=== PATIENT | male | born 1955 | race Caucasian/White ===

== ENCOUNTER → 2021-11-24 | Outpatient (CLI) | payer OTHER | LOC: HEART 5 08:13 | DX: I20.9 Angina pectoris, unspecified (principal) | CPT/HCPCS: 78452; A9502; J2785 ==

== ENCOUNTER → 2022-03-19 | Outpatient (CLI) | payer OTHER | LOC: HEART 5 13:55 | DX: J44.9 Chronic obstructive pulmonary disease, unspecified (principal) | CPT/HCPCS: 71046; 94060; 94729 ==